=== PATIENT | female | born 1960 | race Caucasian/White ===

== ENCOUNTER 2016-12-16 15:03 | Emergency (ER) | payer SELFPAY ==
[~2016-12-16] VITALS: Ht 172.7 cm; Wt 88.6 kg
[~2016-12-16 15:03] MED LIST: BACT800T5 PO; CEPH500C3 PO; IBUP800T23 PO; PRED20 PO
[2016-12-16 15:51] VITALS: BP 150/80; PULSE 93; RESP 16; TEMP 97.7; O2SAT 100
--- NOTE | 2016-12-16 16:08 | PD ---
HPI Chief Complaint: Flank/Kidney Pain Time Seen by Provider: 15:58 Travel History International Travel<30 days: No Contact w/Intl Traveler<30days: No Traveled to known affect area: No History of Present Illness HPI This 56-year-old female is complaining of right flank pain. She says she's been having pain for about 2 days. The pain is quite severe and located in the flank area and radiates to the right lower quadrant. She has noted some blood in her urine. Never had a kidney stone. She thinks that her father had kidney stones the pain is worse after she urinates. 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) Tonsillectomy: Yes Social History Alcohol Use: Yes (very rare) Tobacco Use: Yes (04/28 PPD) Substance Use: No Allergies-Medications (Allergen,Severity, Reaction): Coded Allergies: diatrizoate meglumine (Unverified Allergy, Intermediate, RASH, 12/16/16) gadobenic acid (Unverified Allergy, Intermediate, RASH, 12/16/16) gadodiamide (Unverified Allergy, Intermediate, RASH, 12/16/16) gadoteridol (Unverified Allergy, Intermediate, RASH, 12/16/16) iodixanol (Unverified Allergy, Intermediate, RASH, 12/16/16) iohexol (Unverified Allergy, Intermediate, RASH, 12/16/16) bee venom protein (honey bee) (Unverified Allergy, Unknown, 12/16/16) Uncoded Allergies: combid (Allergy, Severe, Unknown, 12/16/16) . Reported Meds & Prescriptions Reported Meds & Active Scripts Active No Active Prescriptions or Reported Medications Review of Systems General / Constitutional: No: Fever, Chills Eyes: No: Diploplia, Blurred Vision HENT: No: Headaches, Vertigo Cardiovascular: No: Chest Pain or Discomfort Respiratory: No: Cough, Shortness of Breath Gastrointestinal: No: Nausea Genitourinary: Positive: Frequency, Dysuria, Hematuria Skin: No Rash Neurologic: No: Weakness Psychiatric: No: Anxiety, Depression Hematologic/Lymphatic: No: Easy Bruising Physical Exam Narrative GENERAL: Well-developed female SKIN: Focused skin assessment warm/dry. HEAD: Atraumatic. Normocephalic. EYES: Pupils equal and round. No scleral icterus. No injection or drainage. ENT: No nasal bleeding or discharge. Mucous membranes pink and moist. NECK: Trachea midline. No JVD. CARDIOVASCULAR: Regular rate and rhythm. No murmur appreciated. RESPIRATORY: No accessory muscle use. Clear to auscultation. Breath sounds equal bilaterally. GASTROINTESTINAL: Abdomen soft, non-tender, nondistended. Hepatic and splenic margins not palpable. There is right CVA tenderness MUSCULOSKELETAL: No obvious deformities. No clubbing. No cyanosis. No edema. NEUROLOGICAL: Awake and alert. No obvious cranial nerve deficits. Motor grossly within normal limits. Normal speech. PSYCHIATRIC: Appropriate mood and affect; insight and judgment normal. Data Data Last Documented VS Vital Signs Date Time Temp Pulse Resp B/P (MAP) Pulse Ox O2 Delivery O2 Flow Rate FiO2 12/16/16 17:01 88 12/16/16 16:52 18 123/74 (90) 95 Room Air 12/16/16 15:51 97.7 Orders Orders Basic Metabolic Panel (Bmp) (12/16/16 16:04) Complete Blood Count With Diff (12/16/16 16:04) Ua Includes Microscopic (12/16/16 16:04) Ct Abd/Pel W/O Iv Contrast (12/16/16 16:04) Iv Access Insert/Monitor (12/16/16 16:04) Ketorolac Inj (Toradol Inj) (12/16/16 16:15) Ondansetron Inj (Zofran Inj) (12/16/16 16:15) Sodium Chloride 0.9% Flush (Ns Flush) (12/16/16 16:15) Hydromorphone Pf Inj (Dilaudid Pf Inj) (12/16/16 16:15) Sodium Chlor 0.9% 1000 Ml Inj (Ns 1000 M (12/16/16 16:15) Urine Culture (12/16/16 16:15) Hydromorphone Pf Inj (Dilaudid Pf Inj) (12/16/16 17:15) Ceftriaxone Inj (Rocephin Inj) (12/16/16 17:15) Labs Laboratory Tests Test 12/16/16 16:15 White Blood Count 15.2 TH/MM3 Red Blood Count 5.09 MIL/MM3 Hemoglobin 14.6 GM/DL Hematocrit 43.3 % Mean Corpuscular Volume 85.0 FL Mean Corpuscular Hemoglobin 28.6 PG Mean Corpuscular Hemoglobin Concent 33.7 % Red Cell Distribution Width 13.4 % Platelet Count 206 TH/MM3 Mean Platelet Volume 9.5 FL Neutrophils (%) (Auto) 80.1 % Lymphocytes (%) (Auto) 13.9 % Monocytes (%) (Auto) 4.4 % Eosinophils (%) (Auto) 1.0 % Basophils (%) (Auto) 0.6 % Neutrophils # (Auto) 12.1 TH/MM3 Lymphocytes # (Auto) 2.1 TH/MM3 Monocytes # (Auto) 0.7 TH/MM3 Eosinophils # (Auto) 0.2 TH/MM3 Basophils # (Auto) 0.1 TH/MM3 CBC Comment DIFF FINAL Differential Comment Urine Collection Type CLEAN CATCH Urine Color YELLOW Urine Turbidity MOD Urine pH 6.0 Urine Specific [place] 1.010 Urine Protein 30 mg/dL Urine Glucose (UA) NEG mg/dL Urine Ketones NEG mg/dL Urine Occult Blood LARGE Urine Nitrite POS Urine Bilirubin NEG Urine Leukocyte Esterase SMALL Urine RBC 25-49 /hpf Urine WBC 50-99 /hpf Urine WBC Clumps FEW Urine Squamous Epithelial Cells CI /hpf Urine Amorphous Sediment FEW Urine Bacteria MOD /hpf Microscopic Urinalysis Comment CULTURE INDICATED Urine Collection Time 1615 Blood Urea Nitrogen 12 MG/DL Creatinine 0.79 MG/DL Random Glucose 90 MG/DL Calcium Level 9.2 MG/DL Sodium Level 141 MEQ/L Potassium Level 3.9 MEQ/L Chloride Level 104 MEQ/L Carbon Dioxide Level 29.1 MEQ/L Anion Gap 8 MEQ/L Estimat Glomerular Filtration Rate 75 ML/MIN [facility] Medical Decision Making Medical Screen Exam Complete: Yes Emergency Medical Condition: Yes Medical Record Reviewed: Yes Differential Diagnosis Differential includes renal colic, pyelonephritis, musculoskeletal pain Narrative Course CT scan does not show any evidence of kidney stones. Her hemoglobin is 14.6 with a white count of 15,000. Urine shows 25-49 red cells with 50-99 white cells. Diagnosis is right-sided pyelonephritis. She has been given a gram of Rocephin and several doses of pain medication. She is having ongoing pain. Admission was offered but she wishes to try outpatient treatment Diagnosis Primary Impression: Acute pyelonephritis Scripts Oxycodone-Acetaminophen (Percocet) 10-325 mg Tab 1 TAB PO Q4H Y for PAIN, #15 TAB 0 Refills Prov: Marquis Lim MD 12/16/16 Ciprofloxacin (Cipro) 500 Mg Tab 500 MG PO BID for Infection for 20 Days, TAB 0 Refills Prov: Marquis Lim MD 12/16/16 Disposition: 01 DISCHARGE HOME Condition: Stable Marquis Lim MD Dec 16, 2016 16:08
[2016-12-16] MEDS ORDERED: HYDROmorphone HCL PF 1 MG/ML VIAL IVS ONE (16:15)
[2016-12-16] MEDS ORDERED: SODIUM CHLOR 0.9% 1000 ML INJ 1,000 ML IV ONE (16:15)
[2016-12-16] MEDS ORDERED: ONDANSETRON HCL 4 MG/2 ML VIAL IVP ONE (16:15)
[2016-12-16] MEDS ORDERED: SODIUM CHLORIDE 0.9% FLUSH 10 ML FLUSH IVF PRN (16:15)
[2016-12-16] MEDS ORDERED: KETOROLAC TROMETHAMINE 30 MG/ML (IVP) VIAL IVP ONE (16:15)
[2016-12-16 16:24] LABS: AUTOMATED NEUTROPHIL # 12.1 TH/MM3 (1.8-7.7); BASOPHIL # 0.1 TH/MM3 (0-0.2); BASOPHIL % 0.6 % (0.0-2.0); EOSINOPHIL # 0.2 TH/MM3 (0-0.4); HEMATOCRIT 43.3 % (35.0-46.0); HEMO FLAGS DIFF FINAL; LYMPH % 13.9 % (9.0-44.0); LYMPHOCYTE # 2.1 TH/MM3 (1.0-4.8); MEAN CORPUSCULAR HEMOGLOBIN 28.6 PG (27.0-34.0); MEAN CORPUSCULAR HGB CONC 33.7 % (32.0-36.0); MONO % 4.4 % (0.0-8.0); NEUT % 80.1 % (16.0-70.0); PLATELET COUNT 206 TH/MM3 (150-450); RED BLOOD COUNT 5.09 MIL/MM3 (4.00-5.30); RED CELL DISTRIBUTION WIDTH 13.4 % (11.6-17.2); WHITE BLOOD COUNT 15.2 TH/MM3 (4.0-11.0)
[2016-12-16 16:34] LABS: POTASSIUM 3.9 MEQ/L (3.5-5.1)
[2016-12-16 16:38] LABS: BICARBONATE 29.1 MEQ/L (21.0-32.0)
[2016-12-16 16:41] LABS: BLOOD, URINE LARGE (NEG); GLUCOSE,URINE NEG (NEG); KETONE, URINE NEG (NEG); NITRITE,URINE POS (NEG)
[2016-12-16 16:44] LABS: METHOD OF COLLECTION CLEAN CATCH; URINE COLOR YELLOW (YELLW/STRAW)
[2016-12-16 16:46] LABS: BACTERIA, URINE MOD /hpf; COMMENT (UR) CULTURE INDICATED; COMMENT2 (UR) MUCOUS PRESENT; SQUAMOUS EPITHELIAL CELL URINE CI /hpf (0-5)
--- NOTE | 2016-12-16 16:51 | RADRPT ---
EXAM DATE/TIME: 12/16/2016 16:35 [facility] COMPARISON: CT ABDOMEN & PELVIS W/O CONTRAST, October 20, 2015, 19:40. INDICATIONS : Right flank pain and hematuria x 2 days. ORAL CONTRAST: No oral contrast ingested. RADIATION DOSE: 23.79 CTDIvol (mGy) MEDICAL HISTORY : None SURGICAL HISTORY : Appendectomy. Hysterectomy. ENCOUNTER: Initial ACUITY: 2 days PAIN SCALE: 8/10 LOCATION: Right flank TECHNIQUE: Volumetric scanning of the abdomen and pelvis was performed. Using automated exposure control and adjustment of the mA and/or kV according to patient size, radiation dose was kept as low as reasonably achievable to obtain optimal diagnostic quality images. DICOM format image data is av ailable electronically for review and comparison. FINDINGS: CT Abdomen: The liver, spleen, pancreas, adrenals are unremarkable. There are simple cysts in the lef t kidney not significantly changed the largest measures almost 2 cm in size. There is no evidence for any stones in the kidneys or the course of the ureters on either side. There is no hydronephrosis.Th ere is no evidence for any appreciable pathological adenopathy, free fluid, or bowel obstruction. CT pelvis: There is no evidence for mass, abscess formation, or any significant adenopathy within the pelvis. There are scattered diverticuli mainly in the sigmoid colon without definite signs of divert iculitis. CONCLUSION: No evidence for renal stones. Keenan Singletary MD on December 16, 2016 at 16:45 Board Certified Radiologist. This report was verified electronically.
[2016-12-16 16:52] VITALS: BP 123/74; PULSE 87; RESP 18; O2SAT 95
[2016-12-16] MEDS ORDERED: cefTRIAXone INJ 1,000 MG in SODIUM CHLORIDE 0.9% INJ 100 ML IV ONE (17:15)
[2016-12-16] MEDS ORDERED: HYDROmorphone HCL PF 1 MG/ML VIAL IV PUSH ONE ×2 (17:15→18:30)
[2016-12-16 18:12] VITALS: BP 148/78; PULSE 78; RESP 18; O2SAT 98
[2016-12-16] MEDS ORDERED: CIPR-9 PO (18:16)
[2016-12-16] MEDS ORDERED: PERC10TA27 PO (18:16)
[2016-12-16 19:00] VITALS: RESP 18
[2016-12-16 19:05] VITALS: BP 117/77
== END 2016-12-16 19:21 | disposition home or self-care (01) ==
LOC: PHED 15:03
DX: N10 Acute pyelonephritis (principal); A49.8 Other bacterial infections of unspecified site; J45.909 Unspecified asthma, uncomplicated; M19.90 Unspecified osteoarthritis, unspecified site; Z90.710 Acquired absence of both cervix and uterus; F17.210 Nicotine dependence, cigarettes, uncomplicated
CPT/HCPCS: 74176; 80048; 81001; 85025; 87077; 87086; 87186; 96361; 96365; 96375; 96376; 99285; J0696; J1170; J1885; J2405; J7030